=== PATIENT | male | born 1945 | race Caucasian/White ===

== ENCOUNTER → 2017-10-25 | Outpatient (CLI) | payer OTHER | LOC: BMCIMAGING 13:28 | PROVIDERS: ATTEND Internal Medicine | DX: R09.89 Other specified symptoms and signs involving the circulatory and respiratory systems (principal); I70.8 Atherosclerosis of other arteries ==

== ENCOUNTER → 2018-10-23 | Outpatient (CLI) | payer OTHER | LOC: BMCIMAGING 11:37 | PROVIDERS: ATTEND Internal Medicine | DX: M25.561 Pain in right knee (principal) ==